=== PATIENT | female | born 1950 | race Caucasian/White ===

== ENCOUNTER → 2018-10-28 14:01 | Outpatient (CLI) | payer MEDICARE, SELFPAY ==
--- NOTE | 2018-10-28 14:04 | XR_ITS ---
XR DEXA axial skeleton HISTORY: ITS.REASON: Dexa Scan- Bone Density ORDERING PHYSICIAN: Cal Finley MD PATIENT AGE: 68 years COMPARISON: None FINDINGS: The BMD measured at the Total Left femoral neck is 0.736 g/cm squared with a T score of -2.2. This is considered Osteopenic according to the World Health Organization criteria. Fracture risk is Moderate. Treatment is advised. The L1 L4 density has a T score of -2.0. IMPRESSION: Osteopenia with moderate fracture risk. Treatment is advised. Follow-up exam October 2020
== END ==
PROVIDERS: PCP Family Medicine; Visit Provider Nurse Practitioner Obstetrics & Gynecology
DX: M85.89 Other specified disorders of bone density and structure, multiple sites (principal)
CPT/HCPCS: 77080

== ENCOUNTER → 2021-08-10 14:59 | Outpatient (CLI) | payer MEDICARE, SELFPAY | PROVIDERS: PCP Family Medicine; Visit Provider Nurse Practitioner | DX: Z20.822 Contact with and (suspected) exposure to COVID-19 (principal) | CPT/HCPCS: C9803; U0003; U0005 ==

== ENCOUNTER 2022-03-02 10:59 | Emergency (ER) | payer MEDICARE, SELFPAY ==
--- NOTE | 2022-03-02 11:03 | XR_ITS ---
PROCEDURE INFORMATION: Exam: XR Right Ankle Exam date and time: 03/02/2022 11:05 AM Age: 71 years old Clinical indication: Pain; Ankle; Right; Additional info: Pain. Pain. Medial sided foot and ankle pain. TECHNIQUE: Imaging protocol: XR Right ankle. Views: 3 or more views. COMPARISON: No relevant prior studies available. FINDINGS: Bones/joints: Normal. Soft tissues: Normal. IMPRESSION: No acute findings.
--- NOTE | 2022-03-02 11:03 | XR_ITS ---
PROCEDURE INFORMATION: Exam: XR Right Foot Exam date and time: 03/02/2022 11:07 AM Age: 71 years old Clinical indication: Pain; Foot; Right; Additional info: Pain. Medial sided foot and ankle pain. TECHNIQUE: Imaging protocol: XR Right foot. Views: 3 or more views. COMPARISON: CR XR ANKLE RT MIN 3V 03/02/2022 11:05 AM FINDINGS: Bones/joints: Mild osteopenia. Soft tissues: Normal. IMPRESSION: 1. No evidence of acute osseous injury. 2. Mild osteopenia.
[2022-03-02 11:38] VITALS: BP 173/92; PULSE 62; RESP 18; TEMP 37.1; O2SAT 97; BMI 26.4
--- NOTE | 2022-03-02 12:06 | HMH.EDUTC ---
[facility] [place] Clinical Impression: Cellulitis of right foot, Right foot pain Disposition: Home, Self-Care Condition on Discharge: Good Instructions: Cellulitis, DI for Foot Pain Additional Instructions: Rest the extremity, Elevate the extremity as tolerated while you are resting. Take tylenol for pain Follow up with Dr. Wood (podiatry). I put in a referral but you need to call his office and schedule an appointment. Follow up with your regular doctor. GO TO THE ER FOR ANY WORSENING SYMPTOMS Prescriptions: Sulfamethoxazole/Trimethoprim [Bactrim DS tablet] 1 each PO BID 10 Days #20 tab Transmission Status: Pending to [id number] methylPREDNISolone [Medrol] 4 mg PO DIRECTED 6 Days #21 packet Transmission Status: Pending to [id number] Referrals: Yarely Sánchez MD [Primary Care Provider] - Anu Wood DPM [Staff Physician] - Time of Disposition: 12:29 Medical Decision Making - Medical Records Medical records reviewed: No: I reviewed the patient's medical records. - Guzman Inquiry Pt receiving controlled substance: No Vital Signs: 03/02/22 11:38 Temperature 98.7 F Temperature Source Oral Pulse Rate [Left Radial] 62 Respiratory Rate 18 Blood Pressure [Right Arm] 173/92 H Blood Pressure Mean [Right Arm] 119 02 Sat by Pulse Oximetry 97 - Radiology Data #1 Image(s): Foot/Toes Image Reviewed: Yes I reviewed the patient's radiology image, Yes I have reviewed radiologist's interpretation Preliminary Findings: Normal/NAD, No Fracture Seen PROCEDURE INFORMATION: Exam: XR Right Foot Exam date and time: 03/02/2022 11:07 AM Age: 71 years old Clinical indication: Pain; Foot; Right; Additional info: Pain. Medial sided foot and ankle pain. TECHNIQUE: Imaging protocol: XR Right foot. Views: 3 or more views. COMPARISON: CR XR ANKLE RT MIN 3V 03/02/2022 11:05 AM FINDINGS: Bones/joints: Mild osteopenia. Soft tissues: Normal. IMPRESSION: 1. No evidence of acute osseous injury. 2. Mild osteopenia. [facility] [place] HPI - General Stated complaint: rt foot pain Time Seen by Provider: 03/02/22 12:06 Mode of Arrival: Ambulatory Description of Symptoms (Recalled from Triage Doc. by RN): hurt foot yesterday pulling weeds. states that she can not bear weight. right foot. large red swollen bump on inner side of foot. HEENT Symptoms (Recalled from RN notes): No Resp Symptoms (Recalled from RN notes): No Skin Symptoms (Recalled from RN notes): No MS Symptoms (Recalled from RN notes): Yes Functional Status (Recalled from RN notes): wnl - History of Present Illness Provider Complaint: She states that since yesterday she has had a red area on the medial aspect of her right foot and it has been painful to bear weight and walk on it. She denies any known injury. She is not diabetic. She has never had symptoms like this before. She denies any chills or fever. - Related Data Home Medications Medication Instructions Recorded Confirmed aspirin 81 mg tablet,delayed 81 mg PO DAILY 07/21/18 10/20/18 release cholecalciferol (vitamin D3) 25 1,000 unit PO DAILY 07/21/18 10/20/18 mcg (1,000 unit) capsule esomeprazole magnesium 20 mg 20 mg PO DAILY 07/21/18 10/20/18 capsule,delayed release flaxseed each PO g 07/21/18 10/20/18 levothyroxine 75 mcg capsule 75 mcg PO DAILY 07/21/18 10/20/18 lisinopril 10 mg tablet 10 mg PO DAILY 07/21/18 10/20/18 simvastatin 40 mg tablet 40 mg PO QHS 07/21/18 10/20/18 sucralfate 1 gram tablet 1 g PO QACHS 07/21/18 10/20/18 Previous Rx's Medication Instructions Recorded alendronate 40 mg tablet 40 mg PO DAILY #30 tab 12/09/18 estradiol 1 g VAGINAL .bid wkly #42.5 g 04/17/20 Sulfamethoxazole/Trimethoprim 1 each PO BID 10 Days #20 tab 03/02/22 [Bactrim DS tablet] methylPREDNISolone [Medrol] 4 mg PO DIRECTED 6 Days #21 03/02/22 packet Allergies Aller
[2022-03-02 12:40] VITALS: BP 172/92; PULSE 62; RESP 18; TEMP 36.9
== END 2022-03-02 12:42 | disposition home or self-care (01) ==
PROVIDERS: Emergency Provider Nurse Practitioner Family; PCP Family Medicine
DX: L03.115 Cellulitis of right lower limb (principal); M79.671 Pain in right foot; M85.861 Other specified disorders of bone density and structure, right lower leg; E03.9 Hypothyroidism, unspecified; E78.5 Hyperlipidemia, unspecified; F32.A Depression, unspecified; F41.9 Anxiety disorder, unspecified; Z79.52 Long term (current) use of systemic steroids; Z79.890 Hormone replacement therapy; Z79.899 Other long term (current) drug therapy; Z82.49 Family history of ischemic heart disease and other diseases of the circulatory system; Z80.9 Family history of malignant neoplasm, unspecified; Z82.5 Family history of asthma and other chronic lower respiratory diseases
CPT/HCPCS: 73610; 73630; 99213; G0463

== ENCOUNTER 2023-04-13 09:27 | Emergency (ER) | payer MEDICARE, SELFPAY ==
[2023-04-13 09:28] VITALS: BP 176/100; PULSE 71; RESP 18; TEMP 36.5; O2SAT 99; BMI 26.4
--- NOTE | 2023-04-13 09:42 | EXP.UTC ---
Discharge Plan Disposition Patient Disposition: Home, Self-Care Condition: Good Prescriptions Prescriptions: New doxycycline hyclate [doxycycline hyclate] 100 mg capsule 100 mg PO Q12 10 Days Qty: 20 0RF mupirocin 2 % ointment 1 applic topical TID 7 Days Qty: 15 0RF amoxicillin-pot clavulanate 875-125 mg Tablet 1 tab PO Q12H Qty: 20 0RF No Action aspirin [Adult Low Dose Aspirin] 81 mg tablet,delayed release (DR/EC) 81 mg PO DAILY cholecalciferol (vitamin D3) 1,000 unit capsule 1,000 unit PO DAILY esomeprazole magnesium [Nexium] 20 mg capsule,delayed release(DR/EC) 20 mg PO DAILY levothyroxine 75 mcg capsule 75 mcg PO DAILY lisinopril 10 mg tablet 10 mg PO DAILY simvastatin 40 mg tablet 40 mg PO QHS sucralfate 1 gram tablet 1 g PO QACHS flaxseed oral powder powder PO bisoprolol-hydrochlorothiazide 5-6.25 mg tablet 1 tab PO alendronate 40 mg tablet 40 mg PO DAILY Qty: 30 11RF estradiol [Estrace] 0.01 % (0.1 mg/gram) cream 1 g Vaginal .bid wkly Qty: 42.5 2RF Rx Instructions: Pt. is to use 1/2 gram twice weekly sulfamethoxazole-trimethoprim 1 EACH tablet 1 each PO BID 10 Days Qty: 20 0RF methylprednisolone 4 MG tablets,dose pack 4 mg PO DIRECTED 6 Days Qty: 21 0RF Referrals Follow up/Referrals: Yarely Sánchez MD [Primary Care Provider] - See instructions Activity Restrictions/Add. Instructions Additional Instructions/Restrictions: Take tylenol for pain or fever. Take the medications as directed. Follow up with your regular doctor. GO TO THE ER FOR ANY WORSENING SYMPTOMS Clinical Impressions Clinical Impression: Abscess, dental, Tick bite Instructions Patient Instructions: Tooth Abscess, DI for Tooth Abscess, Protect Yourself from Tickborne Illnesses Discharge ED Provider: David Petty [facility] [place] HPI General Stated complaint: SOA,dental pain, removed tick groin area Time Seen by Provider: 04/13/23 09:42 History of Present Illness Provider Complaint: She is here with multiple complaints. She has had a productive cough with yellowish sputum for the past 5 days. She has swelling around one of her teeth in her left upper jaw. She also found a tick embedded on her right upper leg yesterday. She removed the tick but shed like for someone to look at the site to make sure it is ok. Related Data Home Medications Medication Instructions Recorded Confirmed aspirin 81 mg tablet,delayed 81 mg PO DAILY 07/21/18 03/05/22 release (Adult Low Dose Aspirin) cholecalciferol (vitamin D3) 25 1,000 unit PO DAILY 07/21/18 03/05/22 mcg (1,000 unit) capsule esomeprazole magnesium 20 mg 20 mg PO DAILY 07/21/18 03/05/22 capsule,delayed release (Nexium) flaxseed each PO 07/21/18 03/05/22 levothyroxine 75 mcg capsule 75 mcg PO DAILY 07/21/18 03/05/22 lisinopril 10 mg tablet 10 mg PO DAILY 07/21/18 03/05/22 simvastatin 40 mg tablet 40 mg PO QHS 07/21/18 03/05/22 sucralfate 1 gram tablet 1 g PO QACHS 07/21/18 03/05/22 bisoprolol 5 1 tab PO 03/05/22 03/05/22 mg-hydrochlorothiazide 6.25 mg tablet Previous Rx's Medication Instructions Recorded alendronate 40 mg tablet 40 mg PO DAILY #30 tabs 12/09/18 methylprednisolone 4 mg tablets in 4 mg PO DIRECTED 6 days #21 03/02/22 a dose pack packets sulfamethoxazole 800 1 each PO BID 10 days #20 tabs 03/02/22 mg-trimethoprim 160 mg tablet estradiol 0.01% (0.1 mg/gram) 1 g vaginal .bid wkly #42.5 grams 03/22/22 vaginal cream (Estrace) amoxicillin 875 mg-potassium 1 tab PO Q12H #20 tabs 04/13/23 clavulanate 125 mg tablet doxycycline hyclate 100 mg capsule 100 mg PO Q12 10 days #20 caps 04/13/23 mupirocin 2 % topical ointment 1 applic topical TID 7 days #15 04/13/23 grams Allergies Allergy/AdvReac Type Severity Reaction Status Date / Time No Known Allergies Allergy Verified 03/05/22 13:36 PFSH PFS Disclaimer: The information
--- NOTE | 2023-04-13 09:46 | XR_ITS ---
PROCEDURE INFORMATION: Exam: XR Chest Exam date and time: 04/13/2023 9:47 AM Age: 72 years old Clinical indication: Shortness of breath; Additional info: SOB TECHNIQUE: Imaging protocol: Radiologic exam of the chest. Views: 2 views. COMPARISON: No relevant prior studies available. FINDINGS: Lungs: Lungs are well aerated without a focal area of consolidation. Pleural spaces: Unremarkable. No pleural effusion. No pneumothorax. Heart/Mediastinum: Small hiatal hernia Bones/joints: Unremarkable. IMPRESSION: Lungs are well aerated without a focal area of consolidation.
[2023-04-13 10:29] VITALS: BP 176/100; PULSE 71; RESP 18; TEMP 36.5; O2SAT 99
== END 2023-04-13 10:53 | disposition home or self-care (01) ==
PROVIDERS: Emergency Provider Nurse Practitioner Family; PCP Family Medicine
DX: S70.361A Insect bite (nonvenomous), right thigh, initial encounter (principal); K04.7 Periapical abscess without sinus; W57.XXXA Bitten or stung by nonvenomous insect and other nonvenomous arthropods, initial encounter
CPT/HCPCS: 71046; 96372; 99212; 99214; G0463; J0696

== ENCOUNTER 2024-03-01 18:26 | Emergency (ER) | payer MEDICARE, SELFPAY ==
[2024-03-01 18:30] VITALS: BP 130/90; PULSE 74; RESP 19; TEMP 36.5; O2SAT 97; BMI 26.5
--- NOTE | 2024-03-01 18:44 | EXP.UTC ---
Discharge Plan Disposition Patient Disposition: Home, Self-Care Condition: Good Prescriptions Prescriptions: New ondansetron 4 mg Tablet,Disintegrating 4 mg PO Q8H PRN (Reason: Nausea) Qty: 20 0RF No Action levothyroxine 75 mcg capsule 75 mcg PO DAILY lisinopril 10 mg tablet 10 mg PO DAILY simvastatin 40 mg tablet 40 mg PO QHS bisoprolol-hydrochlorothiazide 5-6.25 mg tablet 1 tab PO DAILY Referrals Follow up/Referrals: Yarely Sánchez MD [Primary Care Provider] - See instructions Activity Restrictions/Add. Instructions Additional Instructions/Restrictions: Drink extra fluids with and between meals. If you have difficulty drinking, try very small amounts of water or suck on ice chips. ? Avoid fruit juices, as these do not replace minerals and can actually increase diarrhea. ? Children and adults can use sports drinks to replenish electrolytes, Propel water with electrolyes or Liquid IV you may also drink Pedialyte. ? Eat food in small amounts and let your stomach recover. ? Get lots of rest. You may feel tired or weak. ? No greasy or fried foods for the next 24-48 hours BRAT diet Bananas Rice Apples and [place] ? Make sure to drink plenty of liquids ? Return if needed ? Straight to ER if any life threatening symptoms ? Zofran as prescribed ? You was given an outpatient order for diarrhea panel, please collect specimen and bring back to outpatient lab then call back to the [facility] or follow up with family doctor for results ? Follow up with family doctor in the next 48-72 hours if no improvement or any worsening of symptoms Clinical Impressions Clinical Impression: Nausea vomiting and diarrhea Instructions Patient Instructions: Diarrhea, Nausea and Vomiting-Adult, Ondansetron Discharge ED Provider: Hattie Torrez [facility] [place] HPI General Stated complaint: Vomiting,diarrhea Mode of Arrival: Ambulatory Source of Information: Patient Limitations: No Limitations Time Seen by Provider: 03/01/24 18:44 Description of Symptoms (Recalled from Triage Doc. by RN): PATIENT C/O VOMITING AND DIARRHEA THAT STARTED THIS MORNING HEENT Symptoms (Recalled from RN notes): No Resp Symptoms (Recalled from RN notes): No Skin Symptoms (Recalled from RN notes): No MS Symptoms (Recalled from RN notes): No Functional Status (Recalled from RN notes): WNL History of Present Illness Provider Complaint: Patient states that she has been having N/V/D all day States that she didnt have anything to take for the nausea and she was worried if she didnt get something so she could make sure she is drinking plenty to stay hydrated Related Data Home Medications Medication Instructions Recorded Confirmed levothyroxine 75 mcg capsule 75 mcg PO DAILY 07/21/18 03/01/24 lisinopril 10 mg tablet 10 mg PO DAILY 07/21/18 03/01/24 simvastatin 40 mg tablet 40 mg PO QHS 07/21/18 03/01/24 bisoprolol 5 1 tab PO DAILY 03/05/22 03/01/24 mg-hydrochlorothiazide 6.25 mg tablet Previous Rx's Medication Instructions Recorded ondansetron 4 mg disintegrating 4 mg PO Q8H PRN Nausea #20 tabs 03/01/24 tablet Allergies Allergy/AdvReac Type Severity Reaction Status Date / Time No Known Allergies Allergy Verified 03/05/22 13:36 Worker's Comp Is this a Worker's Comp case?: No [facility] Disclaimer: The information contained in this section may have been updated after the patient was seen, as this information can be updated by other users. Medical History (Updated 03/01/24 @ 18:51 by Hattie Torrez APRN) Hyperlipidemia Hypertension Surgical History (Updated 03/01/24 @ 18:46 by Elizabet Gonzalez RN) History of hysterectomy History of tonsillectomy History of cholecystectomy Social History Smoking Status: Never smoker alcohol intake: current substance use type: denies use current occupational status: retired Travel in the last 8 weeks: None ROS Obtained: Yes All systems reviewed & no additional complaints except as documented and Yes Systems reviewed as appropriate & no additional complaints except as documented Constitutional Constitutional: Reports system reviewed and no additional complaints, except as documented, Reports as per HPI, Denies body ache, Denies chills and Denies fever(s) ENT Ears, Nose, Mouth, and Throat: Reports system reviewed and no additional complaints, except as documented and Reports as per HPI Cardiovascular Cardiovascular: Reports system reviewed and no additional complaints, except as documented and Reports as per HPI Respiratory Respiratory: Reports system reviewed and no additional complaints, except as documented and Reports as per HPI Gastrointestinal Gastrointestingal: Reports system reviewed and no additional complaints, except as documented, as per HPI, diarrhea, nausea and vomiting; Denies abdominal pain Physical Exam General General appearance: alert and in no apparent distress ENT ENT exam: Present mucous membranes moist Respiratory Respiratory exam: Present normal lung sounds bilaterally; Absent respiratory distress or wheezes Cardiovascular Cardiovascular exam: Present regular rate, normal rhythm and normal heart sounds Neurological Exam Neurological exam: Present alert, oriented X3 and normal gait Medical Decision Making Guzman Inquiry Pt receiving controlled substance: No Guzman was queried for this patient: No Vital Signs: 03/01/24 18:30 Temperature 97.7 F Temperature Source Oral Pulse Rate [Left Brachial] 74 Respiratory Rate 19 Blood Pressure [Left Arm] 130/90 Blood Pressure Mean [Left Arm] 103 Blood Pressure Source [Left Arm] Automatic Cuff Blood Pressure Position [Left Arm] Sitting 02 Sat by Pulse Oximetry 97 Oxygen Delivery Method Room Air Medical Decision Narrative: After ODT zofran patient vomited x 1 will give 4mg IM and reassess After IM zofran patient states that nausea is much improved drinking a gatoraid with no vomiting
[2024-03-01] MEDS: ONDANSETRON 4MG ODT 4 MG SL (18:56)
[2024-03-01] MEDS: ONDANSETRON 4MG/2ML VIAL 4 MG IM (19:20)
[2024-03-01 19:52] VITALS: BP 130/90; PULSE 74; RESP 19; TEMP 36.5; O2SAT 97
== END 2024-03-01 19:53 | disposition home or self-care (01) ==
PROVIDERS: Emergency Provider Nurse Practitioner; PCP Family Medicine
DX: R11.2 Nausea with vomiting, unspecified (principal); R19.7 Diarrhea, unspecified; I10 Essential (primary) hypertension; E78.5 Hyperlipidemia, unspecified
CPT/HCPCS: 96372; 99212; 99214; G0463; J2405

== ENCOUNTER 2024-03-12 09:40 | Emergency (ER) | payer MEDICARE, SELFPAY ==
[2024-03-12 10:50] VITALS: BP 115/78; PULSE 59; RESP 22; TEMP 36.8; O2SAT 97; BMI 26.4
--- NOTE | 2024-03-12 11:07 | EXP.UTC ---
Discharge Plan Disposition Patient Disposition: Home, Self-Care Condition: Good Prescriptions Prescriptions: New prednisone 10 mg tablet 10 mg PO BID Qty: 10 0RF amoxicillin-pot clavulanate 875-125 mg Tablet 1 tab PO Q12H Qty: 20 0RF guaifenesin [Mucinex] 600 mg tablet extended release 12hr 600 mg PO BID PRN (Reason: cough) Qty: 20 0RF No Action bisoprolol-hydrochlorothiazide 5-6.25 mg tablet 1 tab PO DAILY simvastatin 40 mg tablet 40 mg PO DAILY levothyroxine [Synthroid] 100 mcg tablet 100 mcg PO DAILY lisinopril 10 mg tablet 10 mg PO DAILY Referrals Follow up/Referrals: Yarely Sánchez MD [Primary Care Provider] - See instructions Activity Restrictions/Add. Instructions Additional Instructions/Restrictions: Start antibiotic today. Be sure to complete entire prescription even if feeling better Monitor temp. Tylenol every 4 hours as needed and / or ibuprofen every 6 hours as needed ( As long as your primary care physician has told you that it ok to take both. For fever/aches/pains ER if no less than 101 despite Tylenol or Motrin Humidifier/vaporizer or hot steamy shower Mucinex for your cough Be sure to drink lots of water. *Start steroid tomorrow. Helps with inflammation therefore, cough and wheezing. Follow directions on the package. Reviewed side effects. Patient reports taking them before. Follow up IMMEDIATELY for new or worsening of symptoms OR no noticeable improvement over the next 48-72 hours. 911 immediately for any life threatening symptoms such as chest pain or difficulty breathing Clinical Impressions Clinical Impression: Bronchitis Instructions Patient Instructions: Sore Throat, Acute Bronchitis Discharge ED Provider: Hattie Torrez [facility] General Stated complaint: throat pain chest congestion Mode of Arrival: Ambulatory Source of Information: Patient Limitations: No Limitations Time Seen by Provider: 03/12/24 11:07 Description of Symptoms (Recalled from Triage Doc. by RN): PATIENT C/O CHEST CONGESTION X 2 DAYS HEENT Symptoms (Recalled from RN notes): No Resp Symptoms (Recalled from RN notes): Yes Skin Symptoms (Recalled from RN notes): No MS Symptoms (Recalled from RN notes): No Functional Status (Recalled from RN notes): WNL History of Present Illness Provider Complaint: Patient states that she is having sore throat and chest congestion and cough for several days States today her throat feels raw and irritated from all the drainage so she came in to get checked Related Data Home Medications Medication Instructions Recorded Confirmed bisoprolol 5 1 tab PO DAILY 03/12/24 03/12/24 mg-hydrochlorothiazide 6.25 mg tablet levothyroxine 100 mcg tablet 100 mcg PO DAILY 03/12/24 03/12/24 (Synthroid) lisinopril 10 mg tablet 10 mg PO DAILY 03/12/24 03/12/24 simvastatin 40 mg tablet 40 mg PO DAILY 03/12/24 03/12/24 Previous Rx's Medication Instructions Recorded amoxicillin 875 mg-potassium 1 tab PO Q12H #20 tabs 03/12/24 clavulanate 125 mg tablet guaifenesin 600 mg tablet, 600 mg PO BID PRN cough #20 tabs 03/12/24 extended release 12 hr (Mucinex) prednisone 10 mg tablet 10 mg PO BID #10 tabs 03/12/24 Allergies Allergy/AdvReac Type Severity Reaction Status Date / Time No Known Allergies Allergy Verified 03/05/22 13:36 Worker's Comp Is this a Worker's Comp case?: No [facility] Disclaimer: The information contained in this section may have been updated after the patient was seen, as this information can be updated by other users. Medical History (Updated 03/12/24 @ 11:31 by Hattie Torrez APRN) Hyperlipidemia Hypertension Surgical History (Updated 03/01/24 @ 18:46 by Elizabet Gonzalez RN) History of hysterectomy History of tonsillectomy History of cholecystectomy Social History Smoking Status: Never smoker alcohol intake: current alcohol intake frequency: holidays/special occasions only substance use type: denies use current occupational status: retired Travel in the last 8 weeks: None ROS Obtained: Yes All systems reviewed & no additional complaints except as documented and Yes Systems reviewed as appropriate & no additional complaints except as documented Constitutional Constitutional: Reports system reviewed and no additional complaints, except as documented and Reports as per HPI ENT Ears, Nose, Mouth, and Throat: Reports system reviewed and no additional complaints, except as documented, Reports as per HPI and Reports sore throat Cardiovascular Cardiovascular: Reports system reviewed and no additional complaints, except as documented and Reports as per HPI Respiratory Respiratory: Reports system reviewed and no additional complaints, except as documented, Reports as per HPI, Reports chest congestion and Reports cough Gastrointestinal Gastrointestingal: Reports system reviewed and no additional complaints, except as documented and as per HPI Physical Exam General General appearance: alert and in no apparent distress ENT ENT exam: Present mucous membranes moist Expanded ENT Exam Throat exam: Present other (Pharyngeal erythema noted with PND) Respiratory Respiratory exam: Present normal lung sounds bilaterally; Absent respiratory distress or wheezes Cardiovascular Cardiovascular exam: Present regular rate, normal rhythm and normal heart sounds Neurological Exam Neurological exam: Present alert, oriented X3 and normal gait Medical Decision Making Guzman Inquiry Pt receiving controlled substance: No Guzman was queried for this patient: No Vital Signs: 03/12/24 10:50 Temperature 98.3 F Temperature Source Oral Pulse Rate [Left Brachial] 59 L Respiratory Rate 22 Blood Pressure [Left Arm] 115/78 Blood Pressure Mean [Left Arm] 90 Blood Pressure Source [Left Arm] Automatic Cuff Blood Pressure Position [Left Arm] Sitting 02 Sat by Pulse Oximetry 97 Oxygen Delivery Method Room Air Lab Data Lab results reviewed: Yes I reviewed the patient's lab results. Medical Decision Narrative: Patient states that she has taken steriods in the past without complications or reactions
[2024-03-12 11:26] LABS: UTC Strep Screen (Rapid) Negative (Negative)
[2024-03-12] MEDS: METHYLPREDNISOLONE SOD SUCC 125MG VIAL 125 MG IM (11:42)
[2024-03-12 11:43] VITALS: BP 115/78; PULSE 59; RESP 22; TEMP 36.8; O2SAT 97
== END 2024-03-12 11:51 | disposition home or self-care (01) ==
PROVIDERS: Emergency Provider Nurse Practitioner; PCP Family Medicine
DX: J20.9 Acute bronchitis, unspecified (principal); R07.0 Pain in throat; R05.9 Cough, unspecified
CPT/HCPCS: 87880; 96372; 99212; 99214; G0463

== ENCOUNTER 2024-04-06 09:18 | Outpatient (CLI) | payer MEDICARE, SELFPAY | END 2024-04-06 23:59 | disposition home or self-care (01) | LOC: RT 09:20 | PROVIDERS: PCP Family Medicine; Visit Provider Family Medicine | DX: I49.3 Ventricular premature depolarization (principal) | CPT/HCPCS: 93225; 93227 ==